=== PATIENT | male | born 1990 | race Caucasian/White ===

== ENCOUNTER 2016-11-06 20:14 | Emergency (ER) | payer BC ==
[2016-11-06 20:58] VITALS: BP 112/57
[2016-11-06] MEDS ORDERED: Ibuprofen TAB* 400 MG PO ONE (21:01)
--- NOTE | 2016-11-06 21:21 | UC ---
Lower Extremity/Ankle HPI - HPI Summary HPI Summary: pt c/o right ankle pain and swelling sudden onset after pt fell while playing basketball 2 hours prior to clinic visit. Pt was jumping in air and landed on another players foot and reports that right ankle/foot inverted and had sudden on set of pain. Pt has applied ice prior to visit to clinic and is able to bear minimal weight on right foot/ankle - History of Current Complaint Chief Complaint: UCLowerExtremity Stated Complaint: RT ANKLE INJURY Time Seen by Provider: 11/06/16 20:52 Hx Obtained From: Patient Onset/Duration: Sudden Onset, Lasting Hours Severity Initially: Moderate Severity Currently: Mild Aggravating Factor(s): Standing, Ambulation Alleviating Factor(s): Rest, Elevation, Ice Able to Bear Weight: Yes - minimal - Risk Factors Gout Risk Factors: Male - Allergies/Home Medications Allergies/Adverse Reactions: Allergies Allergy/AdvReac Type Severity Reaction Status Date / Time No Known Allergies Allergy Verified 11/06/16 20:53 Home Medications: Home Medications NK [No Home Medications Reported] 11/06/16 [History Confirmed 11/06/16] PMH/Surg Hx/FS Hx/Imm Hx Previously Healthy: Yes - Surgical History Surgical History: Yes Surgery Procedure, Year, and Place: Tonsils - Family History Known Family History: Positive: Other - positive [facility] for myalgia - Social History Alcohol Use: Rare Substance Use Type: None Smoking Status (MU): Never Smoked Tobacco - Immunization History Most Recent Influenza Vaccination: 2015 Most Recent Tetanus Shot: UTD Most Recent Pneumonia Vaccination: None Review of Systems Constitutional: Negative Skin: Other - swelling right lateral malleolous Eyes: Negative ENT: Negative Respiratory: Negative Cardiovascular: Negative Gastrointestinal: Negative Genitourinary: Negative Motor: Decreased ROM - right ankle Neurovascular: Negative Musculoskeletal: Arthralgia - right ankle, Decreased ROM - right ankle, Edema - right lateral malleolus, Myalgia Neurological: Negative Psychological: Negative All Other Systems Reviewed And Are Negative: Yes Physical Exam Triage Information Reviewed: Yes Appearance: Well-Appearing Vital Signs: Initial Vital Signs Temp 98.6 F 11/06/16 20:54 Pulse 72 11/06/16 20:54 Resp 18 11/06/16 20:54 BP 112/57 11/06/16 20:54 Pulse Ox 100 11/06/16 20:54 Eye Exam: Normal Respiratory Exam: Other Respiratory: Positive: No respiratory distress Musculoskeletal Exam: Other Musculoskeletal: Positive: Strength Limited @ - right ankle, ROM Limited @ - right lateral malleolus, Edema @ - right lateral malleolus Neurological Exam: Normal Psychological Exam: Normal Skin Exam: Normal Lower Extremity Course/Dx - Differential Dx/Diagnosis Differential Diagnosis/HQI/PQRI: Fracture (Closed), Sprain Provider Diagnoses: right ankle sprain Discharge - Discharge Plan Condition: Stable Disposition: HOME Patient Education Materials: Ankle Sprain (ED), Ankle Exercises (GEN) Referrals: [facility] [Outside] Hossein Mixon MD [Medical Doctor] - No Primary Care Phys,NOPCP [Primary Care Provider] - Additional Instructions: Please follow up with your PCP or with the orthopedic provider I have referred you to.
--- NOTE | 2016-11-06 21:35 | RAD ---
Indication: Right ankle injury. 3 views of the right ankle demonstrate soft tissue swelling. Ankle mortise is intact. IMPRESSION: Soft tissue swelling without evidence of fracture.
== END 2016-11-06 22:00 | disposition home or self-care (01) ==
LOC: UCEAST 20:14
DX: S93.401A Sprain of unspecified ligament of right ankle, initial encounter (principal); X50.1XXA Overexertion from prolonged static or awkward postures, initial encounter; Y93.67 Activity, basketball; Y92.310 Basketball court as the place of occurrence of the external cause
CPT/HCPCS: 99213; A9270-GY; G0463